=== PATIENT | male | born 1950 | race Caucasian/White ===

== ENCOUNTER 2016-06-28 10:19 | Emergency (ER) | payer MEDICAID, MEDICARE ==
[~2016-06-28 10:19] MED LIST: ALBU.5I NEB; AMLO5TAB2 PO; ASPI81CH CHEW; ASPI81TA81; ASPI81TA82 PO; CLOP75 PO; LISI-363 PO; LISI-515 PO; METO25CR OR; NITR.4 SL; NITR1SUB3 SL; SIMV40TA OR; TIOT1AER INH
[2016-06-28 10:20] VITALS: BP 176/101; PULSE 82; RESP 14; TEMP 98; O2SAT 96
[2016-06-28 11:19] LABS: AUTOMATED NEUTROPHIL # 4.5 TH/MM3 (1.8-7.7); BASOPHIL % 0.7 % (0.0-2.0); EOSINOPHIL # 0.1 TH/MM3 (0-0.4); HEMATOCRIT 46.5 % (39.0-51.0); HEMO FLAGS DIFF FINAL; LYMPH % 24.7 % (9.0-44.0); LYMPHOCYTE # 1.7 TH/MM3 (1.0-4.8); MEAN CORPUSCULAR HEMOGLOBIN 33.6 PG (27.0-34.0); MEAN CORPUSCULAR HGB CONC 34.7 % (32.0-36.0); MONO % 7.6 % (0.0-8.0); PLATELET COUNT 159 TH/MM3 (150-450); WHITE BLOOD COUNT 6.8 TH/MM3 (4.0-11.0)
[2016-06-28 11:36] LABS: ANION GAP 7 MEQ/L (5-15); BICARBONATE 30.1 MEQ/L (21.0-32.0); BLOOD UREA NITROGEN 12 MG/DL (7-18); CHLORIDE 102 MEQ/L (98-107); GLOMERULAR FILTRATION RATE 84 ML/MIN (>89); POTASSIUM 4.4 MEQ/L (3.5-5.1); SODIUM (NA) 139 MEQ/L (136-145)
--- NOTE | 2016-06-28 11:38 | RADRPT ---
EXAM DATE/TIME: 06/28/2016 11:21 [place] COMPARISON: CHEST SINGLE AP, October 03, 2012, 19:45. INDICATIONS : Chest pains with chest pressure. MEDICAL HISTORY : Myocardial infarction. SURGICAL HISTORY : Coronary artery stent. ENCOUNTER: Initial ACUITY: 1 day PAIN SCORE: 8/10 LOCATION: Bilateral chest FINDINGS: A single view of the chest demonstrates the lungs to be symmetrically aerated without evidence of mas s, infiltrate or effusion. The heart size appears normal. Stable tortuosity of the thoracic aorta.. Osseous structures are intact. CONCLUSION: No evidence of acute pulmonary disease. Florencia Shoemaker MD on June 28, 2016 at 11:36 Board Certified Radiologist. This report was verified electronically.
[2016-06-28 11:41] LABS: CREATINE KINASE 88 U/L (39-308)
[2016-06-28 13:17] VITALS: BP 155/91; PULSE 65; TEMP 98.3; O2SAT 98
--- NOTE | 2016-06-28 14:07 | EKG ---
Date Performed: 06/28/2016 Time Performed: 10:47:51 PTAGE: 65 years EKG: Sinus rhythm NORMAL ECG Since PREVIOUS TRACING , no significant change noted DOCTOR: Asim Graham Interpretating Date/Time 06/28/2016 14:00:06
--- NOTE | 2016-06-28 14:20 | PD ---
HPI Chief Complaint: Chest Pain Time Seen by Provider: 13:09 Travel History International Travel<30 days: No Contact w/Intl Traveler<30days: No Traveled to known affect area: No History of Present Illness HPI This patient complains of chest pain. Duration is 10 days. Severity is moderate. Location is left upper chest. Spells last wanted to minutes and resolve. No alleviating factors. PFSH Past Medical History Heart Rhythm Problems: No Cancer: Yes (basal cancer) Cardiac Catheterization: Yes Cardiovascular Problems: Yes High Cholesterol: Yes Chemotherapy: No Chest Pain: Yes Congestive Heart Failure: No COPD: Yes Diabetes: No Diminished Hearing: No Gastrointestinal Disorders: Yes Glaucoma: No Genitourinary: No Hepatitis: No Hiatal Hernia: No Hypertension: Yes Musculoskeletal: No (as above) Neurologic: No Psychiatric: No Reproductive: No Respiratory: Yes Radiation Therapy: No Thyroid Disease: No Tetanus Vaccination: > 5 Years Past Surgical History AICD: No Coronary Artery Bypass Graft: No 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 Read complete instructions carefully before using. Stiolto Respimat Inh (Tiotropium-Olodaterol Inh) 2.5-2.5 Mcg/Act Aero 2 Puff INH DAILY Amlodipine (Amlodipine Besylate) 5 Mg Tab 5 Mg PO DAILY Nitroglycerin SL (Nitroglycerin) 0.4 Mg Subl 0.4 Mg SL DIRECTED PRN ONE TABLET UNDER THE TONGUE NEEDED FOR CHEST PAIN, MAY REPEAT EVERY FIVE MINUTES FOR A TOTAL OF 3 DOSES OR CALL 911 IF NO RELIEF Lisinopril 20 Mg Tab 20 Mg PO DAILY Aspir-81 (Aspirin) 81 Mg Tabdr Review of Systems General / Constitutional: No: Fever Eyes: No: Visual changes HENT: No: Headaches Cardiovascular: Positive: Chest Pain or Discomfort Respiratory: No: Shortness of Breath Gastrointestinal: No: Abdominal Pain Genitourinary: No: Dysuria Musculoskeletal: No: Pain Skin: No Rash Neurologic: No: Weakness Psychiatric: No: Depression Endocrine: No: Polydipsia Hematologic/Lymphatic: No: Easy Bruising Physical Exam Narrative GENERAL: Well-nourished, well-developed patient in no apparent distress. SKIN: Warm and dry. HEAD: Atraumatic. Normocephalic. EYES: Pupils equal and round. No scleral icterus. No injection or drainage. ENT: No nasal bleeding or discharge. Mucous membranes pink and moist. NECK: Trachea midline. No JVD. CARDIOVASCULAR: Regular rate and rhythm. No murmur appreciated. RESPIRATORY: No accessory muscle use. Clear to auscultation. Breath sounds equal bilaterally. GASTROINTESTINAL: Abdomen soft, non-tender, nondistended. Hepatic and splenic margins not palpable. MUSCULOSKELETAL: No obvious deformities. No clubbing. No cyanosis. No edema. NEUROLOGICAL: Awake and alert. No obvious cranial nerve deficits. Motor grossly within normal limits. Normal speech. PSYCHIATRIC: Appropriate mood and affect; insight and judgment normal. Data Data Last Documented VS Vital Signs Date Time Temp Pulse Resp B/P Pulse Ox O2 Delivery O2 Flow Rate FiO2 06/28/16 13:17 98.3 65 155/91 98 06/28/16 12:46 18 Room Air Orders Electrocardiogram (06/28/16 10:43) Complete Blood Count With Diff (06/28/16 10:43) Basic Metabolic Panel (Bmp) (06/28/16 10:43) Ckmb (Isoenzyme) Profile (06/28/16 10:43) Troponin I (06/28/16 10:43) Chest, Single Ap (06/28/16 10:43) Labs Laboratory Tests Test 06/28/16 11:05 White Blood Count 6.8 TH/MM3 Red Blood Count 4.80 MIL/MM3 Hemoglobin 16.1 GM/DL Hematocrit 46.5 % Mean Corpuscular Volume 97.0 FL Mean Corpuscular Hemoglobin 33.6 PG Mean Corpuscular Hemoglobin 34.7 % Concent Red Cell Distribution Width 13.0 % Platelet Count 159 TH/MM3 Mean Platelet Volume 9.1 FL Neutrophils (%) (Auto) 66.0 % Lymphocytes (%) (Auto) 24.7 % Monocytes (%) (Auto) 7.6 % Eosinophils (%) (Auto) 1.0 % Basophils (%) (Auto) 0.7 % Neutrophils # (Auto) 4.5 TH/MM3 Lymphocytes # (Auto) 1.7 TH/MM3 Monocytes # (Auto) 0.5 TH/MM3 Eosinophils # (Auto) 0.1 TH/MM3 Basophils # (Auto) 0.0 TH/MM3 CBC Comment DIFF FINAL Differential Comment Sodium Level 139 MEQ/L Potassium Level 4.4 MEQ/L Chloride Level 102 MEQ/L Carbon Dioxide Level 30.1 MEQ/L Anion Gap 7 MEQ/L Blood Urea Nitrogen 12 MG/DL Creatinine 0.91 MG/DL Estimat Glomerular Filtration 84 ML/MIN Rate Random Glucose 101 MG/DL Calcium Level 8.8 MG/DL Total Creatine Kinase 88 U/L Troponin I LESS THAN 0.02 NG/ML MDM Medical Decision Making Medical Screen Exam Complete: Yes Emergency Medical Condition: Yes Medical Record Reviewed: Yes Differential Diagnosis Differential diagnosis includes ME, angina, pericarditis, pleurisy, GERD, anxiety. Narrative Course IV placed I reviewed the EKG shows sinus rhythm without ST elevation I reviewed the chest x-ray is normal Extended cardiac monitoring shows sinus rhythm without ectopy CBC is normal Metabolic profile is normal CK is normal Troponin is normal Coagulation studies are normal I have reviewed the patient's electronic medical record. Recommended observation the chest pain center to rule out cardiac cause of his symptoms. Workup here is negative but he does have known cardiac disease. Patient is going to sign out AGAINST MEDICAL ADVICE. I've advised him to return if he worsens or changes his mind. He says that his 10 days ago and he has to do home things today and cannot stay. He thinks anxiety and stress of this is causing his pain Diagnosis Primary Impression: Chest pain, unspecified Additional Impression: History of coronary artery stent placement Disposition: AGAINST MEDICAL ADVICE Ulises Pearson MD Jun 28, 2016 14:20
[2016-06-28 14:29] VITALS: BP 122/81; TEMP 97.8
[2016-07-05] MEDS ORDERED: AMLO5TAB2 PO (10:13)
[2016-07-05] MEDS ORDERED: LISI-515 PO (10:13)
== END 2016-06-28 14:30 | disposition home or self-care (01) ==
LOC: NEPD 10:19
DX: R07.9 Chest pain, unspecified (principal)
CPT/HCPCS: 71010; 80048; 82550; 84484; 85025; 93005